=== PATIENT | male | born 1930 | race Caucasian/White ===

== ENCOUNTER 2017-03-04 23:38 | Inpatient (IN) | payer MEDICARE, BC ==
[2017-03-04] MEDS ORDERED: Sodium Chloride 0.9% 1,000 ML IV STA (23:55)
--- NOTE | 2017-03-05 00:18 | ED PDOC ---
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 Patient notes that while sitting and watching TV he suddenly felt warm, followed by chills. Reports that he then vomited a few times (non-bloody, non-bilious). Confirms feeling dizzy, describing it as a lightheadedness one would feel "while drunk". Notes that upon ED arrival, he feels better. PCP: Fran Rosado Past Medical History Reviewed: Historical Data, Nursing Documentation, Vital Signs Vital Signs: Last Vital Signs Temp 97.4 F L 03/04/17 23:43 Pulse 60 03/04/17 23:43 Resp 16 03/04/17 23:43 BP 126/66 03/04/17 23:43 Pulse Ox 100 03/04/17 23:43 - Medical History PMH: HTN Other PMH: Aortic aneurysm - Family History Family History: States: Unknown Family Hx - Social History Current smoker - smoking cessation education provided: No Ex-Smoker (has not smoked in the last 12 months): Yes (former heavy smoker) - Home Medications Home Medications: Ambulatory Orders Medication Instructions Recorded Atorvastatin [Lipitor] 40 mg PO HS 03/05/17 Doxazosin [Cardura] 2 mg PO DAILY 03/05/17 - Allergies Allergies/Adverse Reactions: Allergies Allergy/AdvReac Type Severity Reaction Status Date / Time No Known Allergies Allergy Verified 03/04/17 23:45 Review of Systems ROS Statement: Except As Marked, All Systems Reviewed And Found Negative Constitutional: Positive for: Chills Gastrointestinal: Positive for: Vomiting Neurological: Positive for: Dizziness Physical Exam - Reviewed Nursing Documentation Reviewed: Yes Vital Signs Reviewed: Yes - Physical Exam Appears: Positive for: Non-toxic, No Acute Distress Skin: Positive for: Warm, Dry, Pallor Neck: Positive for: Normal Cardiovascular/Chest: Positive for: Regular Rate, Rhythm. Negative for: Murmur Respiratory: Positive for: Normal Breath Sounds (left lung clear), Decreased Breath Sounds (diminished breath sounds and crackles at base of right lung). Negative for: Respiratory Distress Extremity: Positive for: Normal ROM Neurologic/Psych: Positive for: Alert, Oriented. Negative for: Motor/Sensory Deficits - Laboratory Results Result Diagrams: 03/05/17 00:47 03/05/17 00:47 - ECG O2 Sat by Pulse Oximetry: 100 (RA) Pulse Ox Interpretation: Normal Medical Decision Making Medical Decision Makin Initial impression: PNA v effusion v mass Initial plan: * T&S * VBG * EKG * Labs * Lipase * Trop I * PTT/PT * CXR * NS IV * BCx * UCx * Influenza A B * UA * Re-eval 130AM Pt. reassessed, improving. No CP/SOB, however patient has elevated troponin at this time, given age and co-morbidities will admit in OBS for serial troponins. Case discussed with FP resident Dr. Mendoza. Dx: NSTEMI, Dizziness Scribe Attestation: Documented by Rosario Cintron acting as a scribe for Shankar Lopez MD. Scribe Attestation: All medical record entries made by the Scribe were at my direction and personally dictated by me. I have reviewed the chart and agree that the record accurately reflects my personal performance of the history, physical exam, medical decision making, and the department course for this patient. I have also personally directed, reviewed, and agree with the discharge instructions and disposition. Disposition - Clinical Impression Clinical Impression: NSTEMI (non-ST elevated myocardial infarction), Dizziness - Patient ED Disposition Is Patient to be Admitted: Yes - Disposition Disposition Time: 01:33 Condition: IMPROVED Forms: [employer] (Burmese)
[2017-03-05 00:46] LABS: VENOUS BLOOD GAS BASE EXCESS 3.2 mmol/L (0.0-2.0); VENOUS BLOOD GAS PCO2 60 mmHg (40-60); VENOUS BLOOD PH 7.32 (7.32-7.43)
[2017-03-05 00:51] LABS: BASO # 0.1 K/uL (0.0-0.2); BASO % 0.8 % (0.0-2.0); EOS # 0.2 K/uL (0.0-0.7); EOS % 1.3 % (0.0-4.0); HEMATOCRIT 43.9 % (35.0-51.0); LYMPH # 1.4 K/uL (1.0-4.3); LYMPH % 12.5 % (20.0-40.0); MEAN CELL VOLUME 90.4 fl (80.0-94.0); MEAN CORPUSCULAR HEMOGLOBIN 29.1 pg (27.0-31.0); MEAN CORPUSCULAR HGB CONC 32.2 g/dL (33.0-37.0); MEAN PLATELET VOLUME 8.2 fl (7.2-11.7); MONO # 0.7 K/uL (0.0-0.8); MONO % 5.9 % (0.0-10.0); NEUT # 8.9 K/uL (1.8-7.0); NEUT % 79.5 % (50.0-75.0); NRBC % 0.1 % (0.0-0.0); RED CELL DISTRIBUTION WIDTH 14.7 % (11.5-14.5); WHITE BLOOD COUNT 11.2 K/uL (4.8-10.8)
[2017-03-05 01:01] LABS: PARTIAL THROMBOPLASTIN TIME 35.2 Seconds (25.6-37.1)
[2017-03-05 01:03] LABS: BLOOD UREA NITROGEN 20 mg/dl (9-20); CALCIUM 9.2 mg/dL (8.4-10.2); CARBON DIOXIDE 27 mmol/L (22-30); CHLORIDE 103 mmol/L (98-107); GFR AFRICAN-AMERICAN > 60; GLUCOSE,RANDOM 136 mg/dL (75-110); LIPASE 88 U/L (23-300); POTASSIUM 4.3 MMOL/L (3.6-5.0); SODIUM 141 mmol/l (132-148)
[2017-03-05] MEDS ORDERED: Aspirin 325 mg EC Tablets PO STA (01:27)
--- NOTE | 2017-03-05 02:26 | CP.PCM.HP ---
Addendum entered and electronically signed by Louie Thapa MD 03/05/17 07:29 : - Patient was seen at bedside at 7:30 AM with attending. Patient is doing well, resting comfortably, denies any chest pain, SOB, Nausea or vomiting. However he has troponin x 2 positive, and has been throwing PVC's. - Plan has been discussed with the patient. Continue currently plan. Cardio has been consulted. Echo has been ordered Addendum entered and electronically signed by Willie Mendoza MD 03/05/17 03 :15: correction to Troponin I lab values: correct value is 0.1760 Original Note: <Willie Mendoza - Last Filed: 03/05/17 03:06> History of Present Illness - History of Present Illness History of Present Illness: 86 y/o male with a PMHx of HTN, HLD and elective AAA repair presented to the ED complaining of dizziness and vomiting. Pt reports he was in his usual state of health till approximately 21:30, when he got dizzy and lightheaded while watching TV. Pt reports he then stood up, became diaphoretic and had an episode of dry heaving followed by several episodes (4-5) of NBNB emesis. He then sat down, still felt dizzy and called for an ambulance to take him to [facility] ED. He does not endorse any other complaints. Reports feeling better at bedside. This is his first episode. He denies any associated chills, headaches, changes in vision, CP/SOB/LEOS/palpitations, exertional chest pain, left arm/jaw pain, pain radiating to the back, D/C, numbness/tingling. ROS: as per HPI PMD: Dr. Fran Rosado (last visit approx 1 week ago) Vasc: Dr. Nelson ([place]) Chemical Dependency Counselor: Dr jef swanson as well PMHx: HTN, HLD, Endovascular AAA repair @ 4.7cm 3 years ago Meds: Cardura 2mg QD, Atorvastatin 40mg QD ALL: NKDA PsurgHx: AAA repair, b/l hernia repair Socialhx: former 1PPD tobacco abuse, quit 30 years ago. Denies ETOH, drug abuse FamilyHx: father stroke, denies any other hx ED Course: Vitals T 97.4 F, HR 60, BP 126/66, RR 16, POX 100% RA Labs CBC: 11.2>14.1/43.9<124 Lipase: wnl Troponin I: 0.760 BMP: wnl Coags: wnl Imaging EKG: regular, sinus nava, normal axis, 1st degree AV block, borderline LVH ~ 33mm based on Sokolov-Granda Criteria (as interpreted by me) CXR: clear, cardiac silhoutte normal size, no active disease (as interpreted by me) admitted to [facility] Present on Admission - Present on Admission Any Indicators Present on Admission: No History of DVT/PE: No History of Uncontrolled Diabetes: No Past Patient History - Past Social History Smoking Status: Former Smoker - CARDIAC Hx Hypertension: Yes - NEUROLOGICAL Hx Neurological Disorder: Yes Hx Vertigo: Yes - PSYCHIATRIC Hx Substance Use: No - SURGICAL HISTORY Hx Surgeries: Yes Hx Abdominal Aortic Aneurysm Repair: Yes Hx Herniorrhaphy: Yes (bilateral inguinal hernia repairs) - ANESTHESIA Hx Anesthesia: Yes Hx Anesthesia Reactions: No Hx Malignant Hyperthermia: No Meds Allergies/Adverse Reactions: Allergies Allergy/AdvReac Type Severity Reaction Status Date / Time No Known Allergies Allergy Verified 03/04/17 23:45 Physical Exam - Constitutional Appears: Non-toxic, No Acute Distress - Head Exam Head Exam: ATRAUMATIC, NORMOCEPHALIC - Eye Exam Eye Exam: EOMI. absent: Conjunctival injection, Scleral icterus Pupil Exam: NORMAL ACCOMODATION, PERRL - ENT Exam ENT Exam: Mucous Membranes Moist - Neck Exam Neck exam: Positive for: Full Rom. Negative for: Lymphadenopathy - Respiratory Exam Respiratory Exam: Decreased Breath Sounds (right lung base ), Clear to Auscultation Bilateral, Rales (right lung base ), NORMAL BREATHING PATTERN. absent: Accessory Muscle Use, Rhonchi, Wheezes, Respiratory Distress - Cardiovascular Exam Cardiovascular Exam: Bradycardia, REGULAR RHYTHM, RRR, +S1, +S2. absent: Tachycardia, JVD, Rubs, Systolic Murmur - GI/Abdominal Exam GI & Abdominal Exam: Normal Bowel Sounds, Soft. absent: Pulsatile Mass, Rigid, Tenderness - Extremities Exam Extremities exam: Positive for: normal capillary refill, normal inspection, pedal pulses present. Negative for: calf tenderness, pedal edema, tenderness - Back Exam Back exam: NORMAL INSPECTION - Neurological Exam Neurological exam: Alert, CN II-XII Intact, Oriented x3, Reflexes Normal - Psychiatric Exam Psychiatric exam: Normal Affect, Normal Mood - Skin Skin Exam: Cyanosis, Dry, Intact, Normal Color, Warm Results - Vital Signs Recent Vital Signs: Last Vital Signs Temp 97.4 F L 03/04/17 23:43 Pulse 62 03/05/17 00:00 Resp 18 03/05/17 00:00 BP 141/85 03/05/17 00:00 Pulse Ox 100 03/05/17 01:33 - Labs Result Diagrams: 03/05/17 00:47 03/05/17 00:47 Labs: Laboratory Results - last 24 hr 03/04/17 03/05/17 03/05/17 00:43 00:47 00:47 WBC 11.2 H RBC 4.85 Hgb 14.1 Hct 43.9 MCV 90.4 MCH 29.1 MCHC 32.2 L RDW 14.7 H Plt Count 124 L MPV 8.2 Neut % (Auto) 79.5 H Lymph % (Auto) 12.5 L [place] % (Auto) 5.9 Eos % (Auto) 1.3 Baso % (Auto) 0.8 Neut # 8.9 H Lymph # 1.4 [place] # 0.7 Eos # 0.2 Baso # 0.1 PT INR APTT pO2 28 L VBG pH 7.32 VBG pCO2 60 VBG HCO3 26.0 VBG Total CO2 32.7 H VBG O2 Sat (Calc) 55.6 VBG Base Excess 3.2 H VBG Potassium 5.0 Sodium 137.0 141 Chloride 105.0 103 Glucose 143 H Lactate 2.3 H FiO2 21.0 Potassium 4.3 Carbon Dioxide 27 Anion Gap 15 BUN 20 Creatinine 1.0 Est GFR ( Amer) > 60 Est GFR (Non-Af Amer) > 60 Random Glucose 136 H Calcium 9.2 Troponin I 0.1760 H* Lipase 88 Venous Blood Potassium 5.0 Influenza Typ A,B (EIA) 03/05/17 03/05/17 00:47 00:47 WBC RBC Hgb Hct MCV MCH MCHC RDW Plt Count MPV Neut % (Auto) Lymph % (Auto) [place] % (Auto) Eos % (Auto) Baso % (Auto) Neut # Lymph # [place] # Eos # Baso # PT 12.2 INR 1.1 APTT 35.2 pO2 VBG pH VBG pCO2 VBG HCO3 VBG Total CO2 VBG O2 Sat (Calc) VBG Base Excess VBG Potassium Sodium Chloride Glucose Lactate FiO2 Potassium Carbon Dioxide Anion Gap BUN Creatinine Est GFR ( Amer) Est GFR (Non-Af Amer) Random Glucose Calcium Troponin I Lipase Venous Blood Potassium Influenza Typ A,B (EIA) Negative for flu a/b Assessment & Plan - Assessment and Plan (Free Text) Assessment: 86 y/o male with PMHx of HTN, HLD, AAA s/p endovascular repair admitted for NSTE -ACS. Plan: 1) NSTE-ACS -ANDREW Score: 3 -management as per NSTE-ACS ischemia guidelines -Troponin I + @ 0.760 -Trend troponin Q6H -Repeat EKG in the AM -Tele monitoring -monitor vitals -S/P ASA 325mg 1 dose in ED -Ticgelor 180mg loading dose -start therapeutic Lovenox, 80mg SC Q12H (~1mg/kg), CrCl 61mL/hr -Cardiology consult, awaiting recommendations -f/u: HbA1C, Lipid Panel, CKMB, NT-Pro-BNP -heart healthy diet 2) HTN -unknown control -normal BP on presentation -monitor BPs -c/w home meds 3) HLD -unknown control -f/u lipid panel -c/w home med 4) Prophylaxis: Zofran 4mg PRN N/V Currently being anti-coagulated via Ticagrelor, ASA, Lovenox 5) Code Status Full Code <Fran Rosado - Last Filed: 03/07/17 07:04> Results - Vital Signs Recent Vital Signs: Last Vital Signs Temp 97.6 F 03/07/17 05:00 Pulse 55 L 03/07/17 05:00 Resp 18 03/07/17 05:00 BP 129/74 03/07/17 05:00 Pulse Ox 94 L 03/07/17 05:00 - Labs Result Diagrams: 03/06/17 04:20 03/05/17 00:47 Attending/Attestation - Attestation I have personally seen and examined this patient.: Yes I have fully participated in the care of the patient.: Yes I have reviewed all pertinent clinical information: Yes
[2017-03-05 02:52] LABS: RBC URINE 7 /hpf (0-3); URINE BILIRUBIN NEGATIVE (NEGATIVE); URINE BLOOD MODERATE (NEGATIVE); URINE COLOR YELLOW (YELLOW); URINE GLUCOSE (UA) NEG (Normal); URINE KETONE NEGATIVE (NEGATIVE); URINE LEUKOCYTE ESTERASE NEG Leu/uL (Negative); URINE PROTEIN 30 mg/dL (NEGATIVE); URINE UROBILINOGEN 0.2-1.0 mg/dL (0.2-1.0); WBC URINE 1 /hpf (0-5)
--- NOTE | 2017-03-05 09:51 | CP.PCM.CON ---
History of Present Illness - History of Present Illness History of Present Illness: THE PATIENT IS AN 86 YEAR OLD MALE WITH A HISTORY OF HYPERTENSION, HYPERLIPIDEMIA AND AN ABDOMINAL AAA REPAIR WITH INTRAVASCULAR STENTS IN 2014. HE WAS SEEN BY A INTELLIGENCE AGENT AT [facility] PRIOR TO THE 2015 AAA REPAIR AND HAD WHAT THE PATIENT BELIEVES WAS A PHARMACOLOGICAL STRESS TEST AND HE BELIEVES IT WAS NORMAL. HE NOW STATES THAT HE WAS WATCHING A FOOTBALL GAME ON THE LAST NIGHT AND FELT WARM, STOOD UP, GOT DIZZY AND THEN VOMITED AND CALLED THE AMBULANCE AND WAS BROUGHT TO [facility] AND ADMITTED. HE GOT NAUSEOUS ONCE MORE BUT DID NOT VOMIT. HE DENIES CHEST PAIN. CARDIOLOGY WAS CALLED DUE TO AN ELEVATED TROPONIN OF 0.17. Past Patient History - Past Medical History & Family History Past Medical History?: Yes - Past Social History Smoking Status: Former Smoker - CARDIAC Hx Cardiac Disorders: Yes (HTN/High cholesterol/ AAA(repaired 2015)) Hx Hypercholesterolemia: Yes Hx Hypertension: Yes - PULMONARY Hx Respiratory Disorders: No (former smoker) - NEUROLOGICAL Hx Neurological Disorder: Yes (vertigo) Hx Vertigo: Yes - HEENT Hx HEENT Problems: Yes Other/Comment: glasses - RENAL Hx Chronic Kidney Disease: No - ENDOCRINE/METABOLIC Hx Endocrine Disorders: No - HEMATOLOGICAL/ONCOLOGICAL Hx Blood Disorders: No - INTEGUMENTARY Hx Dermatological Problems: No - MUSCULOSKELETAL/RHEUMATOLOGICAL Hx Musculoskeletal Disorders: No Hx Falls: No - GASTROINTESTINAL Hx Gastrointestinal Disorders: No - GENITOURINARY/GYNECOLOGICAL Hx Genitourinary Disorders: Yes (Hx - hematuria) Hx Hematuria: Yes - PSYCHIATRIC Hx Psychophysiologic Disorder: No Hx Substance Use: No - SURGICAL HISTORY Hx Surgeries: Yes Hx Abdominal Aortic Aneurysm Repair: Yes Hx Herniorrhaphy: Yes (bilateral inguinal hernia repairs) - ANESTHESIA Hx Anesthesia: Yes Hx Anesthesia Reactions: No Hx Malignant Hyperthermia: No Meds Allergies/Adverse Reactions: Allergies Allergy/AdvReac Type Severity Reaction Status Date / Time No Known Allergies Allergy Verified 03/04/17 23:45 - Medications Medications: Current Medications Atorvastatin Calcium (Lipitor) 40 mg PO HS DAKOTAH Doxazosin Mesylate (Cardura) 2 mg PO DAILY DAKOTAH Enoxaparin Sodium (Lovenox) 80 mg SC Q12 DAKOTAH PRN Reason: Protocol Ondansetron HCl (Zofran Inj) 4 mg IVP Q6 PRN PRN Reason: Nausea/Vomiting Physical Exam - Respiratory Exam Respiratory Exam: Clear to Auscultation Bilateral - Cardiovascular Exam Cardiovascular Exam: REGULAR RHYTHM, +S1, +S2 - Extremities Exam Extremities exam: Positive for: normal inspection - Additional Findings Additional findings: EKG SINUS RHYTHM, NO ACUTE CHANGES TROPONIN # 1 0.17 TROPONIN # 2 0.73 Results - Vital Signs Recent Vital Signs: Last Vital Signs Temp 97.6 F 03/05/17 07:55 Pulse 63 03/05/17 07:55 Resp 18 03/05/17 07:55 BP 128/75 03/05/17 07:55 Pulse Ox 97 03/05/17 07:55 - Labs Result Diagrams: 03/05/17 00:47 03/05/17 00:47 Labs: Laboratory Results - last 24 hr 03/04/17 03/05/17 03/05/17 00:43 00:47 00:47 WBC 11.2 H RBC 4.85 Hgb 14.1 Hct 43.9 MCV 90.4 MCH 29.1 MCHC 32.2 L RDW 14.7 H Plt Count 124 L MPV 8.2 Neut % (Auto) 79.5 H Lymph % (Auto) 12.5 L [place] % (Auto) 5.9 Eos % (Auto) 1.3 Baso % (Auto) 0.8 Neut # 8.9 H Lymph # 1.4 [place] # 0.7 Eos # 0.2 Baso # 0.1 PT INR APTT pO2 28 L VBG pH 7.32 VBG pCO2 60 VBG HCO3 26.0 VBG Total CO2 32.7 H VBG O2 Sat (Calc) 55.6 VBG Base Excess 3.2 H VBG Potassium 5.0 Sodium 137.0 141 Chloride 105.0 103 Glucose 143 H Lactate 2.3 H FiO2 21.0 Potassium 4.3 Carbon Dioxide 27 Anion Gap 15 BUN 20 Creatinine 1.0 Est GFR ( Amer) > 60 Est GFR (Non-Af Amer) > 60 Random Glucose 136 H Calcium 9.2 CK-MB (Mass) Troponin I 0.1760 H* NT-Pro-B Natriuret Pep Triglycerides Cholesterol LDL Cholesterol Direct HDL Cholesterol Lipase 88 Venous Blood Potassium 5.0 Urine Color Urine Clarity Urine pH Ur Specific [place] Urine Protein Urine Glucose (UA) Urine Ketones Urine Blood Urine Nitrate Urine Bilirubin Urine Urobilinogen Ur Leukocyte Esterase Urine RBC (Auto) Urine Microscopic WBC Ur Squamous Epith Cells Influenza Typ A,B (EIA) 03/05/17 03/05/17 03/05/17 00:47 00:47 02:40 WBC RBC Hgb Hct MCV MCH MCHC RDW Plt Count MPV Neut % (Auto) Lymph % (Auto) [place] % (Auto) Eos % (Auto) Baso % (Auto) Neut # Lymph # [place] # Eos # Baso # PT 12.2 INR 1.1 APTT 35.2 pO2 VBG pH VBG pCO2 VBG HCO3 VBG Total CO2 VBG O2 Sat (Calc) VBG Base Excess VBG Potassium Sodium Chloride Glucose Lactate FiO2 Potassium Carbon Dioxide Anion Gap BUN Creatinine Est GFR ( Amer) Est GFR (Non-Af Amer) Random Glucose Calcium CK-MB (Mass) Troponin I NT-Pro-B Natriuret Pep Triglycerides Cholesterol LDL Cholesterol Direct HDL Cholesterol Lipase Venous Blood Potassium Urine Color Yellow Urine Clarity Clear Urine pH 6.0 Ur Specific [place] 1.018 Urine Protein 30 Urine Glucose (UA) Neg Urine Ketones Negative Urine Blood Moderate Urine Nitrate Negative Urine Bilirubin Negative Urine Urobilinogen 0.2-1.0 Ur Leukocyte Esterase Neg Urine RBC (Auto) 7 H Urine Microscopic WBC 1 Ur Squamous Epith Cells < 1 Influenza Typ A,B (EIA) Negative for flu a/b 03/05/17 03/05/17 02:50 04:20 WBC RBC Hgb Hct MCV MCH MCHC RDW Plt Count MPV Neut % (Auto) Lymph % (Auto) [place] % (Auto) Eos % (Auto) Baso % (Auto) Neut # Lymph # [place] # Eos # Baso # PT INR APTT pO2 VBG pH VBG pCO2 VBG HCO3 VBG Total CO2 VBG O2 Sat (Calc) VBG Base Excess VBG Potassium Sodium Chloride Glucose Lactate FiO2 Potassium Carbon Dioxide Anion Gap BUN Creatinine Est GFR ( Amer) Est GFR (Non-Af Amer) Random Glucose Calcium CK-MB (Mass) 2.58 Troponin I 0.7340 H* NT-Pro-B Natriuret Pep 321 Triglycerides 79 Cholesterol 108 LDL Cholesterol Direct 46 HDL Cholesterol 43 Lipase Venous Blood Potassium Urine Color Urine Clarity Urine pH Ur Specific [place] Urine Protein Urine Glucose (UA) Urine Ketones Urine Blood Urine Nitrate Urine Bilirubin Urine Urobilinogen Ur Leukocyte Esterase Urine RBC (Auto) Urine Microscopic WBC Ur Squamous Epith Cells Influenza Typ A,B (EIA) Assessment & Plan - Assessment and Plan (Free Text) Assessment: NON ST ELEVATION MA IN PATIENT WITH MULTIPLE RISK FACTORS HYPERTENSION HYPERLIPIDEMIA S/P ABDOMINAL AAA REPAIR Plan: THE PATIENT WAS ADMITTED TO 4N ON TELEMETRY O2, ASPIRIN, LOVENOX, BRILINTA, BETA BLOCKERS, NITROPASTE SERIAL EKGS AND TROPONINS, ECHOCARDIOGRAM A CARDIAC CATH WAS RECOMMENDED TO THE PATIENT AND FAMILY WHO ARE AGREEABLE DR VILLA WAS SPOKEN TO DR KWON, HIS INTELLIGENCE AGENT AT [facility], WAS CALLED TO ACCEPT THE PATIENT ON TRANSFER FOR A CARDIAC CATH
--- NOTE | 2017-03-05 10:59 | RAD ---
HISTORY: dizziness, R sided diminished and crackles COMPARISON: Chest radiographs 03/11/2013. TECHNIQUE: Chest PA and lateral FINDINGS: LUNGS: No acute infiltrate is appreciate bilaterally. A small nodular density is question overlapped with the right 3rd anterior rib. A small nodules not excluded. Follow-up chest CT is advised for this interval finding. Remaining lung zhang are unremarkable otherwise. PLEURA: No significant pleural effusion identified. No pneumothorax apparent. CARDIOVASCULAR: Normal. OSSEOUS STRUCTURES: No significant abnormalities. VISUALIZED UPPER ABDOMEN: Normal. OTHER FINDINGS: None. IMPRESSION: No acute infiltrate or pleural effusion bilaterally. There is a questionable nodule right upper lung zone laterally as discussed above. Follow-up chest is advised for additional characterization.
[2017-03-05] MEDS: Enoxaparin 80 mg Syringe SC SCH ×2 (11:03→21:02)
[2017-03-05] MEDS: Aspirin 325 mg EC Tablets PO SCH (11:06)
[2017-03-05] MEDS: Nitroglycerin 2% Ointment Foilpak UD TOP SCH ×3 (11:06→21:00)
--- NOTE | 2017-03-05 19:40 | CARD ---
APPROVED REPORT EXAM: Two-dimensional and M-mode echocardiogram with Doppler and color Doppler. Other Information Quality : GoodRhythm : PVC's INDICATION Non STEMI 2D DIMENSIONS IVSd1.32 (0.7-1.1cm)LVDd3.93 (3.9-5.9cm) LVOT Diameter2.33 (1.8-2.4cm)PWd0.89 (0.7-1.1cm) IVSs0.90 (0.8-1.2cm)LVDs4.38 (2.5-4.0cm) FS (%) 11.4 %PWs0.90 (0.8-1.2cm) LVEF (%)55.0 (>50%) M-Mode DIMENSIONS Left Atrium (MM)3.09 (2.5-4.0cm)IVSd0.82 (0.7-1.1cm) Aortic Root3.65 (2.2-3.7cm)LVDd6.74 (4.0-5.6cm) Aortic Cusp Exc.1.79 (1.5-2.0cm)PWd1.09 (0.7-1.1cm) IVSs1.47 cmFS (%) 30 % LVDs4.71 (2.0-3.8cm)PWs1.41 cm Mitral Valve MV E Mbebnvhs94.9cm/sMV DECEL [id number] A Rwoadtit50.8cm/s MV WFT46cyH/A ratio0.6MVA (PHT)2.53cm2 TDI Lateral E' Peak V10.10cm/sMedial E' Peak V5.54cm/sE/Lateral E'6.0 E/Medial E'11.0 Pulmonary Valve PV Peak Kvsrwyxf24.0cm/s Tricuspid Valve TR Peak Ivrtrmun503hu/sRAP [id number] Peak Gr.23mmHg [id number] LEFT VENTRICLE The left ventricle is normal size. There is mild concentric left ventricular hypertrophy. The left ventricular function is normal. The left ventricular ejection fraction is within the normal range. There is normal LV segmental wall motion. Transmitral Doppler flow pattern is Grade I-abnormal relaxation pattern. RIGHT VENTRICLE The right ventricle is normal size. There is normal right ventricular wall thickness. The right ventricular systolic function is normal. ATRIA The left atrium size is normal. The right atrium size is normal. AORTIC VALVE The aortic valve is mildly thickened. No aortic regurgitation is present. There is no aortic valvular stenosis. MITRAL VALVE The mitral valve is mildly thickened. There is no mitral valve stenosis. Mitral regurgitation is trace to mild. TRICUSPID VALVE The tricuspid valve is normal in structure. There is mild pulmonary hypertension. PULMONIC VALVE The pulmonary valve is normal in structure. There is no pulmonic valvular regurgitation. GREAT VESSELS The aortic root is normal in size. The IVC was not visualized. PERICARDIAL EFFUSION The pericardium appears normal. <Conclusion> The left ventricle is normal size. There is mild concentric left ventricular hypertrophy. The left ventricular function is normal. The left ventricular ejection fraction is within the normal range. There is normal LV segmental wall motion. Transmitral Doppler flow pattern is Grade I-abnormal relaxation pattern. Mitral regurgitation is trace to mild. There is mild pulmonary hypertension.
--- NOTE | 2017-03-06 00:20 | CARD ---
APPROVED REPORT EKG Measurement Heart [id number] PA [id number] <Conclusion> Sinus bradycardia with 1st degree AV block with occasional premature ventricular complexes Nonspecific T wave abnormality Abnormal ECG
--- NOTE | 2017-03-06 00:34 | CARD ---
APPROVED REPORT EKG Measurement Heart [id number] CT [id number] <Conclusion> Sinus bradycardia Otherwise normal ECG
[2017-03-06] MEDS: Nitroglycerin 2% Ointment Foilpak UD TOP SCH ×2 (04:03→14:00)
[2017-03-06 05:46] LABS: HEMATOCRIT 40.3 % (35.0-51.0); MEAN CELL VOLUME 90.4 fl (80.0-94.0); MEAN CORPUSCULAR HEMOGLOBIN 29.3 pg (27.0-31.0); MEAN CORPUSCULAR HGB CONC 32.5 g/dL (33.0-37.0); RED CELL DISTRIBUTION WIDTH 14.5 % (11.5-14.5); WHITE BLOOD COUNT 8.6 K/uL (4.8-10.8)
--- NOTE | 2017-03-06 07:57 | CP.PCM.PN ---
<Louie Thapa - Last Filed: 03/06/17 10:26> Subjective - Date & Time of Evaluation Date of Evaluation: 03/06/17 Time of Evaluation: 08:00 - Subjective Subjective: 86 YO M w/ PMH of AAA repair who was admitted for a NSTEMI, had 4 positive troponins. His morning troponin is .56. - Patient is adamant on going home. He denies chest pain , SOB, Nausea, Vomiting. Plan has been discussed with Cardiology and PCP. 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 Objective - Vital Signs/Intake and Output Vital Signs (last 24 hours): Temp Pulse Resp BP Pulse Ox 97.9 F 62 18 146/76 95 03/06/17 04:55 03/06/17 04:55 03/06/17 04:55 03/06/17 04:55 03/06/17 04:55 - Medications Medications: Current Medications Acetaminophen (Tylenol 325mg Tab) 650 mg PO Q6 PRN PRN Reason: Headache Last Admin: 03/06/17 04:02 Dose: 650 mg Aspirin (Ecotrin) 325 mg PO DAILY [facility] Last Admin: 03/05/17 11:06 Dose: 325 mg Atorvastatin Calcium (Lipitor) 40 mg PO HS [facility] Last Admin: 03/05/17 20:59 Dose: 40 mg Enoxaparin Sodium (Lovenox) 80 mg SC Q12 [facility] PRN Reason: Protocol Last Admin: 03/05/17 21:02 Dose: 80 mg Metoprolol Tartrate (Lopressor) 12.5 mg PO Q12 D[facility]OT[facility] Last Admin: 03/05/17 21:00 Dose: Not Given Nitroglycerin (Nitro-Bid 2% Oint) 0.5 ea TOP Q6 D[facility] Last Admin: 03/06/17 04:03 Dose: Not Given Ondansetron HCl (Zofran Inj) 4 mg IVP Q6 PRN PRN Reason: Nausea/Vomiting - Labs Labs: 03/06/17 04:20 03/05/17 00:47 PT 12.2 Seconds (9.8-13.1) 03/05/17 00:47 INR 1.1 (0.9-1.2) 03/05/17 00:47 APTT 35.2 Seconds (25.6-37.1) 03/05/17 00:47 - Constitutional Appears: No Acute Distress - Respiratory Exam Respiratory Exam: Clear to Ausculation Bilateral, NORMAL BREATHING PATTERN. absent: Rhonchi, Wheezes - Cardiovascular Exam Cardiovascular Exam: REGULAR RHYTHM, +S1, +S2 - GI/Abdominal Exam GI & Abdominal Exam: Soft, Normal Bowel Sounds. absent: Tenderness - Neurological Exam Neurological Exam: Alert, Awake, CN II-XII Intact, Oriented x3 - Skin Skin Exam: Normal Color, Warm Assessment and Plan - Assessment and Plan (Free Text) Assessment: 1) NSTE-ACS -ANDREW Score: 3 -management as per NSTE-ACS ischemia guidelines -Troponin I x 4 positive: .17, .73, .77, Morning Troponin was .56 - Echo: -Tele monitoring -monitor vitals -S/P ASA 325mg 1 dose in ED -Ticgelor 180mg loading dose -start therapeutic Lovenox, 80mg SC Q12H (~1mg/kg), CrCl 61mL/hr -Cardiology consult appreciated - HBA1C: 5.7 -heart healthy diet - Echo: 55%. Mild mitral regurg and mild pulmonary hypertension - Will speak with patients laborer syrup machine 2) HTN -unknown control -normal BP on presentation -monitor BPs - Have started patient on metoprolol 12.5 Q12, since patient has just had a NSTE -ACS 3) HLD -controlled -c/w home med 4) Prophylaxis: Zofran 4mg PRN N/V Currently being anti-coagulated Lovenox 5) Code Status Full Code <Jude Kay - Last Filed: 03/08/17 07:03> Objective - Vital Signs/Intake and Output Vital Signs (last 24 hours): Temp Pulse Resp BP Pulse Ox 97.4 F L 54 L 18 123/72 97 03/07/17 08:00 03/07/17 09:02 03/07/17 08:00 03/07/17 09:02 03/07/17 08:00 - Labs Labs: 03/06/17 04:20 03/05/17 00:47 PT 12.2 Seconds (9.8-13.1) 03/05/17 00:47 INR 1.1 (0.9-1.2) 03/05/17 00:47 APTT 35.2 Seconds (25.6-37.1) 03/05/17 00:47 Attending/Attestation - Attestation I have personally seen and examined this patient.: Yes I have fully participated in the care of the patient.: Yes I have reviewed all pertinent clinical information, including history, physical exam and plan: Yes
[2017-03-06] MEDS: Aspirin 325 mg EC Tablets PO SCH (09:10)
[2017-03-06] MEDS: Enoxaparin 80 mg Syringe SC SCH ×2 (09:12→21:16)
--- NOTE | 2017-03-06 11:42 | CP.PCM.PN ---
Subjective - Date & Time of Evaluation Date of Evaluation: 03/06/17 Time of Evaluation: 09:00 - Subjective Subjective: NO CHEST PAIN OR SOB NO FURTHER NAUSEA, VOMITING OR DIZZINESS Objective - Vital Signs/Intake and Output Vital Signs (last 24 hours): Temp Pulse Resp BP Pulse Ox 97.5 F L 60 18 155/66 H 96 03/06/17 08:06 03/06/17 11:14 03/06/17 08:06 03/06/17 09:10 03/06/17 08:06 - Medications Medications: Current Medications Acetaminophen (Tylenol 325mg Tab) 650 mg PO Q6 PRN PRN Reason: Headache Last Admin: 03/06/17 04:02 Dose: 650 mg Aspirin (Ecotrin) 325 mg PO DAILY [facility] Last Admin: 03/06/17 09:10 Dose: 325 mg Atorvastatin Calcium (Lipitor) 40 mg PO HS [facility] Last Admin: 03/05/17 20:59 Dose: 40 mg Enoxaparin Sodium (Lovenox) 80 mg SC Q12 DAKOTAH PRN Reason: Protocol Last Admin: 03/06/17 09:12 Dose: 80 mg Metoprolol Tartrate (Lopressor) 12.5 mg PO Q12 [facility] Last Admin: 03/06/17 09:10 Dose: 12.5 mg Ondansetron HCl (Zofran Inj) 4 mg IVP Q6 PRN PRN Reason: Nausea/Vomiting - Labs Labs: 03/06/17 04:20 03/05/17 00:47 PT 12.2 Seconds (9.8-13.1) 03/05/17 00:47 INR 1.1 (0.9-1.2) 03/05/17 00:47 APTT 35.2 Seconds (25.6-37.1) 03/05/17 00:47 - Respiratory Exam Respiratory Exam: Clear to Ausculation Bilateral - Cardiovascular Exam Cardiovascular Exam: REGULAR RHYTHM, +S1, +S2 - Extremities Exam Extremities Exam: Normal Inspection - Additional Findings Additional findings: EKG SINUS RHYTHM, NEW T WAVE INVERSIONS IN LEADS I,L, V5 AND V6 THIRD TROPONIN TRENDING DOWN AT O.56 ECHO WITH MILD CONCENTRIC AND GOOD LV FUNCTION Assessment and Plan - Assessment and Plan (Free Text) Assessment: NSTEMI WITH ELEVATED TROPONINS AND EKG WITH LATERAL WALL ISCHEMIC CHANGED HYPERTENSION HYPERLIPIDEMIA A/P ABDOMINAL AAA SURGERY Plan: CONTINUE 02, METOPROLOL, ASPIRIN, ATORVASTATIN, LOVENOX THE FAMILY DOESN'T WANT A CARDIAC CATH AT [facility] THE FAMILY REACHED OUT TO DR KWON YESTERDAY AND THEY STATED THAT HE WANTED AN UPDATE TODAY TO DECIDE ON PLAN OF ACTION-HIS OFFICE WAS CALLED BY ME BUT HE WASN'T IN AND I LEFT A MESSAGE
--- NOTE | 2017-03-06 17:37 | CARD ---
APPROVED REPORT EKG Measurement Heart [id number] <Conclusion> Sinus rhythm with 1st degree AV block with premature atrial complexes T wave abnormality, consider lateral ischemia Prolonged QT Abnormal ECG
[2017-03-06 20:18] VITALS: RESP 18
[2017-03-07 08:18] VITALS: BP 123/72; PULSE 54; TEMP 97.4; O2SAT 97
--- NOTE | 2017-03-07 08:59 | CP.PCM.PN ---
Subjective - Date & Time of Evaluation Date of Evaluation: 03/07/17 Time of Evaluation: 08:30 - Subjective Subjective: NO CHEST PAIN OR SOB FEELS GOOD Objective - Vital Signs/Intake and Output Vital Signs (last 24 hours): Temp Pulse Resp BP Pulse Ox 97.4 F L 54 L 18 123/72 97 03/07/17 08:00 03/07/17 08:00 03/07/17 08:00 03/07/17 08:00 03/07/17 08:00 - Medications Medications: Current Medications Acetaminophen (Tylenol 325mg Tab) 650 mg PO Q6 PRN PRN Reason: Headache Last Admin: 03/06/17 04:02 Dose: 650 mg Aspirin (Ecotrin) 325 mg PO DAILY [facility] Last Admin: 03/06/17 09:10 Dose: 325 mg Atorvastatin Calcium (Lipitor) 40 mg PO HS [facility] Last Admin: 03/06/17 21:20 Dose: 40 mg Enoxaparin Sodium (Lovenox) 80 mg SC Q12 DAKOTAH PRN Reason: Protocol Last Admin: 03/06/17 21:16 Dose: 80 mg Metoprolol Tartrate (Lopressor) 12.5 mg PO Q12 [facility] Last Admin: 03/06/17 21:16 Dose: 12.5 mg Ondansetron HCl (Zofran Inj) 4 mg IVP Q6 PRN PRN Reason: Nausea/Vomiting - Labs Labs: 03/06/17 04:20 03/05/17 00:47 PT 12.2 Seconds (9.8-13.1) 03/05/17 00:47 INR 1.1 (0.9-1.2) 03/05/17 00:47 APTT 35.2 Seconds (25.6-37.1) 03/05/17 00:47 - Respiratory Exam Respiratory Exam: Clear to Ausculation Bilateral - Cardiovascular Exam Cardiovascular Exam: REGULAR RHYTHM, +S1, +S2 - Extremities Exam Extremities Exam: Normal Inspection - Additional Findings Additional findings: EKG SINUS RHYTHM Assessment and Plan - Assessment and Plan (Free Text) Assessment: NSTEMI-STABLE HYPERTENSION HYPERLIPIDEMIA S/P ABDOMINAL AAA REPAIR Plan: I SPOKE TO DR KWON AGAIN YESTERDAY AND HE DOESN'T WANT TO DO A CARDIAC CATH AT THE PRESENT TIME AND THE FAMILY IS GOING ALONG WITH DR KWON'S RECOMMENDATIONS FOR DISCHARGE TODAY CONTINUE ASPIRIN, ATORVASTATIN AND METOPROLOL PATIENT NOT TO CONTINUE ON CARDURA SINCE HE IS ON METOPROLOL OV WITH DR KWON NEXT WEEK WHO WILL MANAGE HIS CARDIAC CARE
[2017-03-07] MEDS: Aspirin 325 mg EC Tablets PO SCH (09:02)
[2017-03-07] MEDS: Enoxaparin 80 mg Syringe SC SCH (09:03)
--- NOTE | 2017-03-07 10:10 | CP.PCM.DIS ---
Provider - Provider Date of Admission: 03/06/17 11:51 Attending physician: Fran Rosado MD Time Spent in preparation of Discharge (in minutes): 30 Diagnosis - Discharge Diagnosis (1) NSTEMI (non-ST elevated myocardial infarction) Status: Acute Hospital Course - Lab Results Lab Results: Micro Results 03/04/17 00:20 Blood-Venous Blood Culture - Preliminary NO GROWTH AFTER 48 HOURS 03/04/17 00:35 Blood-Venous Blood Culture - Preliminary NO GROWTH AFTER 48 HOURS 03/05/17 00:20 Urine,Clean Catch Urine Culture - Final No Growth (<1,000 CFU/ML) Most Recent Lab Values WBC 8.6 K/uL (4.8-10.8) 03/06/17 04:20 RBC 4.46 Mil/uL (4.40-5.90) 03/06/17 04:20 Hgb 13.1 g/dL (12.0-18.0) 03/06/17 04:20 Hct 40.3 % (35.0-51.0) 03/06/17 04:20 MCV 90.4 fl (80.0-94.0) 03/06/17 04:20 MCH 29.3 pg (27.0-31.0) 03/06/17 04:20 MCHC 32.5 g/dL (33.0-37.0) L 03/06/17 04:20 RDW 14.5 % (11.5-14.5) 03/06/17 04:20 Plt Count 131 K/uL (130-400) 03/06/17 04:20 MPV 8.2 fl (7.2-11.7) 03/05/17 00:47 Neut % (Auto) 79.5 % (50.0-75.0) H 03/05/17 00:47 Lymph % (Auto) 12.5 % (20.0-40.0) L 03/05/17 00:47 Iron % (Auto) 5.9 % (0.0-10.0) 03/05/17 00:47 Eos % (Auto) 1.3 % (0.0-4.0) 03/05/17 00:47 Baso % (Auto) 0.8 % (0.0-2.0) 03/05/17 00:47 Neut # 8.9 K/uL (1.8-7.0) H 03/05/17 00:47 Lymph # 1.4 K/uL (1.0-4.3) 03/05/17 00:47 Iron # 0.7 K/uL (0.0-0.8) 03/05/17 00:47 Eos # 0.2 K/uL (0.0-0.7) 03/05/17 00:47 Baso # 0.1 K/uL (0.0-0.2) 03/05/17 00:47 PT 12.2 Seconds (9.8-13.1) 03/05/17 00:47 INR 1.1 (0.9-1.2) 03/05/17 00:47 APTT 35.2 Seconds (25.6-37.1) 03/05/17 00:47 pO2 28 mm/Hg (30-55) L 03/04/17 00:43 VBG pH 7.32 (7.32-7.43) 03/04/17 00:43 VBG pCO2 60 mmHg (40-60) 03/04/17 00:43 VBG HCO3 26.0 mmol/L 03/04/17 00:43 VBG Total CO2 32.7 mmol/L (22-28) H 03/04/17 00:43 VBG O2 Sat (Calc) 55.6 % (40-65) 03/04/17 00:43 VBG Base Excess 3.2 mmol/L (0.0-2.0) H 03/04/17 00:43 VBG Potassium 5.0 mmol/L (3.6-5.2) 03/04/17 00:43 Sodium 137.0 mmol/L (132-148) 03/04/17 00:43 Chloride 105.0 mmol/L (98-107) 03/04/17 00:43 Glucose 143 mg/dL (75-110) H 03/04/17 00:43 Lactate 2.3 mmol/L (0.7-2.1) H 03/04/17 00:43 FiO2 21.0 % 03/04/17 00:43 Sodium 141 mmol/l (132-148) 03/05/17 00:47 Potassium 4.3 MMOL/L (3.6-5.0) 03/05/17 00:47 Chloride 103 mmol/L (98-107) 03/05/17 00:47 Carbon Dioxide 27 mmol/L (22-30) 03/05/17 00:47 Anion Gap 15 (10-20) 03/05/17 00:47 BUN 20 mg/dl (9-20) 03/05/17 00:47 Creatinine 1.0 mg/dl (0.8-1.5) 03/05/17 00:47 Est GFR ( Amer) > 60 03/05/17 00:47 Est GFR (Non-Af Amer) > 60 03/05/17 00:47 Random Glucose 136 mg/dL (75-110) H 03/05/17 00:47 Hemoglobin A1c 5.7 % (4.2-6.5) 03/05/17 02:50 Lactic Acid 1.0 MMOL/L (0.7-2.1) 03/06/17 04:20 Calcium 9.2 mg/dL (8.4-10.2) 03/05/17 00:47 CK-MB (Mass) 2.58 ng/mL (0.0-3.38) 03/05/17 02:50 Troponin I 0.5640 ng/mL (0.00-0.120) H* 03/06/17 04:20 NT-Pro-B Natriuret Pep 321 pg/ml (0-900) 03/05/17 02:50 Triglycerides 79 mg/DL (0-149) 03/05/17 02:50 Cholesterol 108 mg/dL (0-199) 03/05/17 02:50 LDL Cholesterol Direct 46 mg/dL (0-129) 03/05/17 02:50 HDL Cholesterol 43 MG/DL (30-70) 03/05/17 02:50 Lipase 88 U/L (23-300) 03/05/17 00:47 Venous Blood Potassium 5.0 mmol/L (3.6-5.2) 03/04/17 00:43 Urine Color Yellow (YELLOW) 03/05/17 02:40 Urine Clarity Clear (Clear) 03/05/17 02:40 Urine pH 6.0 (5.0-8.0) 03/05/17 02:40 Ur Specific [place] 1.018 (1.003-1.030) 03/05/17 02:40 Urine Protein 30 mg/dL (NEGATIVE) 03/05/17 02:40 Urine Glucose (UA) Neg mg/dL (Normal) 03/05/17 02:40 Urine Ketones Negative mg/dL (NEGATIVE) 03/05/17 02:40 Urine Blood Moderate (NEGATIVE) 03/05/17 02:40 Urine Nitrate Negative (NEGATIVE) 03/05/17 02:40 Urine Bilirubin Negative (NEGATIVE) 03/05/17 02:40 Urine Urobilinogen 0.2-1.0 mg/dL (0.2-1.0) 03/05/17 02:40 Ur Leukocyte Esterase Neg Nany/uL (Negative) 03/05/17 02:40 Urine RBC (Auto) 7 /hpf (0-3) H 03/05/17 02:40 Urine Microscopic WBC 1 /hpf (0-5) 03/05/17 02:40 Ur Squamous Epith Cells < 1 /hpf (0-5) 03/05/17 02:40 Influenza Typ A,B (EIA) Negative for flu a/b (NEGATIVE) 03/05/17 00:47 - Hospital Course Hospital Course: 1) NSTE-ACS -ANDREW Score: 3 -management as per NSTE-ACS ischemia guidelines -Troponin I x 4 positive: .17, .73, .77, Morning Troponin was .56 -S/P ASA 325mg 1 dose in ED -Ticgelor 180mg loading dose -Lovenox, 80mg SC Q12H (~1mg/kg), CrCl 61mL/hr recieved during patients stay in the hospital -Cardiology consult appreciated and cleared for discharge to follow up with patients it field technician for further testing - HBA1C: 5.7 - Echo: 55%. Mild mitral regurg and mild pulmonary hypertension 2) HTN -unknown control -normal BP on presentation -monitor BPs - Have started patient on metoprolol 12.5 Q12, since patient has just had a NSTE -ACS 3) HLD -controlled -c/w home med - Patient has been stable during stay. Patient has been feeling good, denies any chest pain, SOB, nausea, vomiting, abdominal pain. Patient and his family have been in touch with patients it field technician, and would like to follow up with his recommendations. - Patient has been cleared with cardiology to follow up with patients it field technician outpatient as soon as possible. Discharge Exam - Head Exam Head Exam: ATRAUMATIC, NORMOCEPHALIC - Eye Exam Eye Exam: Normal appearance - Respiratory Exam Respiratory Exam: Clear to PA & Lateral, NORMAL BREATHING PATTERN. absent: Rales, Rhonchi - Cardiovascular Exam Cardiovascular Exam: REGULAR RHYTHM, +S1, +S2 - GI/Abdominal Exam GI & Abdominal Exam: Normal Bowel Sounds, Soft. absent: Tenderness - Neurological Exam Neurological exam: Alert, CN II-XII Intact, Oriented x3 - Skin Skin Exam: Normal Color, Warm Discharge Plan - Discharge Medications Prescriptions: Aspirin 81 mg PO DAILY #30 tab.chew Metoprolol Tartrate [Lopressor] 12.5 mg PO Q12 #60 tab - Follow Up Plan Condition: GOOD Disposition: HOME/ ROUTINE Instructions: Myocardial Infarction (DC), Myocardial Infarction (GEN) Additional Instructions: - Have been emphasized the importance of following up with patients it field technician and PCP within the first week of discharge. Furthur testing is needed. - If patient develops recurrence of symptoms please return to ED immediately. ( chest pain, SOB , nausea, vomiting, abdominal pain. ) - Stop taking Cadura, patient has been given a new script of Metoprolol tartrate 12.5 mg PO Q12. Continue the rest of home medications as usual including low dose asprin. - . Referrals: Fran Rosado MD [Family Provider] - Stephon Izaguirre MD [Non-Staff] -
--- NOTE | 2017-03-08 19:29 | CARD ---
APPROVED REPORT EKG Measurement Heart [id number] <Conclusion> Sinus bradycardia with 1st degree AV block ST & T wave abnormality, consider inferolateral ischemia Abnormal ECG
== END 2017-03-07 13:47 | disposition home or self-care (01) | DRG 282 ==
LOC: H.ER 23:38 → H.ERHOLD 03-05 01:28 → H.TEL 03-05 03:20 → OBSVTOIN 03-06 11:51
PROVIDERS: ADMIT Family Medicine; ATTEND Family Medicine
DX: I21.4 Non-ST elevation (NSTEMI) myocardial infarction (principal); I27.20 Pulmonary hypertension, unspecified; I34.0 Nonrheumatic mitral (valve) insufficiency; I10 Essential (primary) hypertension; E78.5 Hyperlipidemia, unspecified; Z79.82 Long term (current) use of aspirin; Z86.79 Personal history of other diseases of the circulatory system; Z87.891 Personal history of nicotine dependence